=== PATIENT | female | born 1950 | race Caucasian/White ===

== ENCOUNTER → 2018-03-05 | Outpatient (CLI) | payer MEDICARE, OTHER | LOC: GMAB 11:21 | PROVIDERS: ATTEND Family Medicine | DX: M25.541 Pain in joints of right hand (principal); M25.542 Pain in joints of left hand; I10 Essential (primary) hypertension ==

== ENCOUNTER → 2018-12-24 | Outpatient (CLI) | payer MEDICARE, OTHER | LOC: GMAHI 13:33 | PROVIDERS: ATTEND Nurse Practitioner Family | DX: R53.82 Chronic fatigue, unspecified (principal); N95.8 Other specified menopausal and perimenopausal disorders; I10 Essential (primary) hypertension; E78.2 Mixed hyperlipidemia; E34.9 Endocrine disorder, unspecified; D51.3 Other dietary vitamin B12 deficiency anemia; M85.89 Other specified disorders of bone density and structure, multiple sites ==

== ENCOUNTER → 2019-09-19 | Outpatient (CLI) | payer MEDICARE, OTHER ==
--- NOTE | 2019-09-19 10:32 | RAD ---
EXAM DESCRIPTION: Pelvis CLINICAL HISTORY: HIP PAIN FINDINGS/ IMPRESSION: Faint labral chondrocalcinosis superior lateral. 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 No fracture of the proximal femora or pelvis Electronically signed by: Yossi Johnson MD 09/19/2019 10:31 AM CDT
--- NOTE | 2019-09-19 10:33 | RAD ---
EXAM DESCRIPTION: Right knee, 4 radiographs CLINICAL HISTORY: KNEE PAIN FINDINGS/ IMPRESSION: Osteoarthritis medial femorotibial with joint space narrowing. Small marginal osteophytes. Large suprapatellar joint effusion. Small patellofemoral osteophytes No fracture. No lytic or blastic bony lesion Electronically signed by: Yossi Johnosn MD 09/19/2019 10:31 AM CDT
== END ==
LOC: RAD 09:11
PROVIDERS: ATTEND Orthopaedic Surgery
DX: M47.898 Other spondylosis, sacral and sacrococcygeal region (principal); M11.259 Other chondrocalcinosis, unspecified hip; M17.11 Unilateral primary osteoarthritis, right knee; M25.761 Osteophyte, right knee; M25.461 Effusion, right knee

== ENCOUNTER → 2019-10-13 | Outpatient (CLI) | payer MEDICARE, OTHER ==
--- NOTE | 2019-10-14 05:18 | MRI ---
x Study: MRI of the Right Knee. Indication: KNEE PAIN Technique: Multiplanar, multi sequence MRI of the right knee was obtained without intravenous contrast. Comparison: Radiographs September 19, 2019. Findings: ACL, PCL, and lateral cord and conus intact. MCL is lax and bowed indicating sequela of a prior MCL sprain. No acute tear. Prominent oblique undersurface tearing and radial free edge tearing body medial meniscus. Fluid signal intensity extends into the meniscotibial gutter and up lifts the MCL. This can indicate parameniscal cyst formation. Grade 3-4 chondral thinning of the central to medial weightbearing portions of the medial compartment with cortical remodeling and subchondral marrow change. Lateral meniscus intact. Grade 2 and 3 chondrosis throughout the lateral compartment, most pronounced at the central to medial margin of the lateral tibial plateau. Patellofemoral extensor mechanism intact. Patella normally located. No high-grade chondral defect patellofemoral compartment. Moderate size knee effusion. No acute fracture. Mild fluid distention of the pes anserine bursa. Impression: Complex multidirectional tearing tearing body medial meniscus with mild fluid signal tracking inferiorly into the meniscotibial gutter which can indicate para meniscal cysts formation. Remote MCL sprain. Grade 3/4 chondrosis medial compartment with grade 2 and 3 changes lateral compartment Moderate size knee effusion. Electronically signed by: Arnold Powers MD 10/14/2019 5:17 AM PROGRAM COUNSELOR
== END ==
LOC: MRI 10:00
PROVIDERS: ATTEND Orthopaedic Surgery
DX: S83.241D Other tear of medial meniscus, current injury, right knee, subsequent encounter (principal); S83.411D Sprain of medial collateral ligament of right knee, subsequent encounter; M94.261 Chondromalacia, right knee

== ENCOUNTER → 2020-01-05 | Outpatient (CLI) | payer MEDICARE, OTHER | LOC: GMAE 14:25 | PROVIDERS: ATTEND Family Medicine | DX: N95.1 Menopausal and female climacteric states (principal) ==

== ENCOUNTER → 2020-04-17 | Outpatient (CLI) | payer MEDICARE, OTHER | LOC: GMAE 12:07 | PROVIDERS: ATTEND Family Medicine | DX: I10 Essential (primary) hypertension (principal); E78.2 Mixed hyperlipidemia ==